=== PATIENT | male | born 1965 | race Caucasian/White ===

== ENCOUNTER → 2018-01-21 16:01 | Outpatient (REF) | payer MEDICARE, OTHER, SELFPAY ==
[2018-01-21 18:20] LABS: Basophils # 0.1 K/mm3 (0-0.2); Basophils % 0.7 % (0.1-2.0); Eosinophils # 0.3 K/mm3 (0.0-0.4); Eosinophils % 3.3 % (0.1-12.0); Hematocrit 49.1 % (42.0-52.0); Hemoglobin 15.6 g/dL (14.1-18.0); Lymphocytes % 23.5 K/mm3 (10-50); Mean Corpuscular HGB Conc 31.7 g/dL (31.8-35.4); Mean Corpuscular Hemoglobin 27.8 pg (27.0-31.2); Mean Corpuscular Volume 87.7 fl (80-94); Mean Platelet Volume 8.5 fl (7.4-10.4); Monocytes # 0.5 K/mm3 (0.1-1.0); Monocytes % 5.8 % (1.7-9.3); Neutrophils # 5.7 K/mm3 (1.8-7.8); Neutrophils % 66.8 % (37.0-80.0); Platelet Count 275 K/mm3 (142-424); Red Cell Distribution Width 13.8 % (11.5-17.5); White Blood Count 8.5 K/mm3 (4.8-10.8)
[2018-01-21 18:37] LABS: Alanine Aminotransferase 28 U/L (12-78); Albumin Level 3.5 gm/dL (3.4-5.0); Alkaline Phosphatase 156 U/L (46-116); Anion Gap 14.3 mEq/L (5-15); Aspartate Amino Transferase 26 U/L (15-37); Bilirubin,Total 0.2 mg/dL (0.2-1.0); Blood Urea Nitrogen 14 mg/dL (7-18); Calcium 9.4 mg/dL (8.5-10.1); Carbon Dioxide 26 mmol/L (21.0-32.0); Chloride 107 mmol/L (98-107); Chol/HDL Ratio 7.1 (1-3.5); Cholesterol 219 mg/dL (140-200); Creatinine,Serum 0.97 mg/dL (0.70-1.30); Estimated Glomerular Filt Rate 82 ml/min (>60); GFR (African American) 99 ML/MIN (>60); Globulin 3.6 gm/dl (1.3-3.2); Glucose 152 mg/dL (74-106); HDL Cholesterol 31 mg/dL (27-67); LDL Cholesterol 110 mg/dL (0-130); Potassium 4.3 mmoL/L (3.5-5.1); Sodium 143 mmol/L (136-145); Thyroid Stimulating Hormone 1.47 uIU/ml (0.358-3.740); Total Protein,Serum 7.1 gm/dL (6.4-8.2); Triglycerides 389 mg/dL (30-200); VLDL Cholesterol 78 mg/dL (0-40)
[2018-01-21 19:00] LABS: Hemoglobin A1C 7.1 % (0.0-7.0)
[2018-01-24 17:39] LABS: Vitamin D 25 Hydroxy 8.6 ng/mL (30.0-100.0)
== END ==
LOC: LAB 16:01
PROVIDERS: Visit Provider Physician Assistant
DX: E11.9 Type 2 diabetes mellitus without complications (principal)
CPT/HCPCS: 80053; 80061; 82043; 82652; 83036; 84436; 84443; 85025

== ENCOUNTER → 2018-03-14 14:17 | Outpatient (CLI) | payer MEDICARE, OTHER, SELFPAY ==
[2018-03-14 14:21] LABS: Microscopic, Urine URINE MICROSCOPIC (MICROSCOPIC)
[2018-03-14 14:45] LABS: Appearance,Urine CLEAR (Clear); Bilirubin,Urine Negative (Negative); Blood, Urine TRACE-I (Negative); Color,Urine YELLOW (Yellow); Glucose,Urine (UA) Negative (Negative); Ketones,Urine Negative (Negative); Leukocyte Esterase,Urine Negative (Negative); Nitrate,Urine Negative (Negative); Protein,Urine 2+ (Negative); Specific Gravity, Urine >= 1.030 (1.005-1.030); Urobilinogen,Urine 0.2 EU/dl (0.2)
[2018-03-14 14:54] LABS: Bacteria,Urine 1+ /lpf; RBC,Urine Occasional #/hpf (0-3)
[2018-03-14 15:03] LABS: Creatinine,Urine Random 251 mg/dL (20-320)
[2018-03-14 15:05] LABS: Basophils # 0.1 K/mm3 (0-0.2); Basophils % 0.7 % (0.1-2.0); Eosinophils # 0.3 K/mm3 (0.0-0.4); Eosinophils % 3.7 % (0.1-12.0); Hematocrit 48.1 % (42.0-52.0); Lymphocytes # 2.3 K/mm3 (0.7-4.5); Lymphocytes % 30.5 K/mm3 (10-50); Mean Corpuscular HGB Conc 31.2 g/dL (31.8-35.4); Mean Corpuscular Hemoglobin 26.8 pg (27.0-31.2); Mean Corpuscular Volume 85.8 fl (80-94); Mean Platelet Volume 7.8 fl (7.4-10.4); Monocytes # 0.3 K/mm3 (0.1-1.0); Monocytes % 4.6 % (1.7-9.3); Neutrophils # 4.4 K/mm3 (1.8-7.8); Neutrophils % 60.4 % (37.0-80.0); Platelet Count 287 K/mm3 (142-424); Red Blood Count 5.61 M/mm3 (4.60-6.20); Red Cell Distribution Width 13.9 % (11.5-17.5); White Blood Count 7.3 K/mm3 (4.8-10.8)
[2018-03-14 15:10] LABS: Total Protein,Urine Random 259.9 mg/dL (0.0-11.9)
[2018-03-14 15:20] LABS: Albumin Level 3.7 gm/dL (3.4-5.0); Anion Gap 14.2 mEq/L (5-15); Blood Urea Nitrogen 12 mg/dL (7-18); Calcium 9.4 mg/dL (8.5-10.1); Carbon Dioxide 28 mmol/L (21.0-32.0); Chloride 105 mmol/L (98-107); Creatinine,Serum 1.23 mg/dL (0.70-1.30); Estimated Glomerular Filt Rate 62 ml/min (>60); GFR (African American) 75 ML/MIN (>60); Glucose 229 mg/dL (74-106); Phosphorous 3.7 mg/dL (2.4-4.9); Potassium 4.2 mmoL/L (3.5-5.1); Sodium 143 mmol/L (136-145)
[2018-03-17 13:26] LABS: Vitamin D 25 Hydroxy 19.1 ng/mL (30.0-100.0)
[2018-03-18 06:09] LABS: Parathyroid Hormone Intact 66 pg/mL (15-65)
[2018-03-18 06:10] LABS: Calcium, Ionized 5.2 mg/dL (4.5-5.6)
== END ==
PROVIDERS: Visit Provider Internal Medicine Nephrology
DX: R80.9 Proteinuria, unspecified (principal)
CPT/HCPCS: 36415; 80069; 81001; 82330; 82570; 82652; 83970; 84155; 85025

== ENCOUNTER → 2018-03-17 14:39 | Outpatient (POV) | payer MEDICARE, OTHER, SELFPAY | PROVIDERS: Family Provider Physician Assistant; PCP Emergency Medicine; Visit Provider Internal Medicine Nephrology | DX: Z00.00 Encounter for general adult medical examination without abnormal findings (principal) ==

== ENCOUNTER → 2018-04-15 15:41 | Outpatient (CLI) | payer MEDICARE, OTHER, SELFPAY ==
[2018-04-15 15:50] LABS: Microscopic, Urine URINE MICROSCOPIC (MICROSCOPIC)
[2018-04-15 16:08] LABS: Basophils # 0.1 K/mm3 (0-0.2); Basophils % 0.8 % (0.1-2.0); Eosinophils # 0.3 K/mm3 (0.0-0.4); Eosinophils % 3.7 % (0.1-12.0); Hemoglobin 13.1 g/dL (14.1-18.0); Lymphocytes # 2.5 K/mm3 (0.7-4.5); Lymphocytes % 31.2 K/mm3 (10-50); Mean Corpuscular HGB Conc 30.5 g/dL (31.8-35.4); Mean Corpuscular Hemoglobin 27.5 pg (27.0-31.2); Mean Corpuscular Volume 90.1 fl (80-94); Mean Platelet Volume 7.6 fl (7.4-10.4); Monocytes # 0.4 K/mm3 (0.1-1.0); Monocytes % 4.9 % (1.7-9.3); Neutrophils # 4.7 K/mm3 (1.8-7.8); Neutrophils % 59.4 % (37.0-80.0); Platelet Count 416 K/mm3 (142-424); Red Blood Count 4.77 M/mm3 (4.60-6.20); Red Cell Distribution Width 15.4 % (11.5-17.5); White Blood Count 7.9 K/mm3 (4.8-10.8)
[2018-04-15 16:38] LABS: Albumin Level 3.6 gm/dL (3.4-5.0); Anion Gap 12.8 mEq/L (5-15); Blood Urea Nitrogen 16 mg/dL (7-18); Calcium 9.1 mg/dL (8.5-10.1); Carbon Dioxide 30 mmol/L (21.0-32.0); Chloride 106 mmol/L (98-107); Estimated Glomerular Filt Rate 53 ml/min (>60); GFR (African American) 65 ML/MIN (>60); Glucose 136 mg/dL (74-106); Phosphorous 3.8 mg/dL (2.4-4.9); Potassium 4.8 mmoL/L (3.5-5.1); Sodium 144 mmol/L (136-145); Uric Acid 6.5 mg/dL (2.6-7.2)
[2018-04-15 17:44] LABS: Appearance,Urine CLEAR (Clear); Blood, Urine 1+ (Negative); Color,Urine YELLOW (Yellow); Glucose,Urine (UA) Negative (Negative); Ketones,Urine Negative (Negative); Leukocyte Esterase,Urine Negative (Negative); Nitrate,Urine Negative (Negative); Protein,Urine 2+ (Negative); Specific Gravity, Urine >= 1.030 (1.005-1.030)
[2018-04-15 17:56] LABS: Bilirubin,Urine Negative (Negative)
[2018-04-15 18:41] LABS: Creatinine,Urine Random 462 mg/dL (20-320); Total Protein,Urine Random 183.3 mg/dL (0.0-11.9)
[2018-04-15 18:52] LABS: Bacteria,Urine 1+ /lpf; Calcium Oxalate Crystals,Urine 3+ /lpf; RBC,Urine Occasional #/hpf (0-3)
[2018-04-18 11:42] LABS: Microalbumin, Urine 881.5 ug/mL (Not Estab.)
[2018-04-24 06:03] LABS: Renin Activity, Plasma 0.529 ng/mL/hr (0.167-5.380)
== END ==
PROVIDERS: Visit Provider Internal Medicine Nephrology
DX: I10 Essential (primary) hypertension (principal)
CPT/HCPCS: 36415; 80069; 81001; 82043; 82088; 82570; 84155; 84244; 84550; 85025

== ENCOUNTER → 2018-04-17 07:48 | Outpatient (CLI) | payer MEDICARE, OTHER, SELFPAY ==
--- NOTE | 2018-04-17 07:54 | AS_ITS ---
Renal Arterial Duplex IMPRESSIONS 1. The right renal artery appears normal. 2. The left renal artery appears normal. 3. High resistance waveforms are demonstrated at the right renal artery. Complete renal arterial duplex. Duplex scan and Doppler flow study including spectral analysis, color and fuller scale imaging. Height: Height: 185.4cm. Height: 73in. Weight: Weight: 148.8kg. Weight: 327.3lb. Body mass index: BMI: 43.3kg/m^2. Body surface area: BSA: 2.83m^2. Location: Vascular laboratory. Patient status: Outpatient. Tables: Arterial flow: + +--------+--------+ Location V sys V ed + +--------+--------+ Right renal - mid 147cm/s 34cm/s + +--------+--------+ Right renal - distal 61.9cm/s -------- + +--------+--------+ Left renal - proximal 95.9cm/s 32.4cm/s + +--------+--------+ Left renal - mid 83.7cm/s 26.9cm/s + +--------+--------+ Left renal - distal 60.5cm/s 20.2cm/s + +--------+--------+ Left renal - Origin 80cm/s 15cm/s + +--------+--------+ Aorta - mid 72cm/s 13cm/s + +--------+--------+ Renal anatomy: + +------+------+ Left Right + +------+------+ Long axis 11.3cm 10.5cm + +------+------+ Short axis 4.7cm 6.5cm + +------+------+ Velocity ratios: + +-----+ V sys + +-----+ Right renal/aortic 2 + +-----+ Left renal/aortic 1.3 + +-----+ (Report amended ) Electronically signed by: Carlos aWtt [id number]
== END ==
PROVIDERS: Family Provider Physician Assistant; PCP Emergency Medicine; Visit Provider Internal Medicine Nephrology
DX: I10 Essential (primary) hypertension (principal)
CPT/HCPCS: 93976

== ENCOUNTER → 2018-07-14 11:34 | Outpatient (CLI) | payer MEDICARE, OTHER, SELFPAY ==
[2018-07-14 11:37] LABS: Microscopic, Urine URINE MICROSCOPIC (MICROSCOPIC)
[2018-07-14 11:50] LABS: Appearance,Urine CLEAR (Clear); Bilirubin,Urine Negative (Negative); Blood, Urine Negative (Negative); Color,Urine YELLOW (Yellow); Glucose,Urine (UA) Negative (Negative); Ketones,Urine Negative (Negative); Leukocyte Esterase,Urine Negative (Negative); Nitrate,Urine Negative (Negative); Protein,Urine 2+ (Negative); Specific Gravity, Urine >= 1.030 (1.005-1.030)
[2018-07-14 11:53] LABS: Creatinine,Urine Random 343 mg/dL (20-320); Total Protein,Urine Random 228.5 mg/dL (0.0-11.9)
[2018-07-14 11:55] LABS: Basophils # 0.1 K/mm3 (0-0.2); Basophils % 0.7 % (0.1-2.0); Eosinophils # 0.3 K/mm3 (0.0-0.4); Eosinophils % 3.3 % (0.1-12.0); Hematocrit 48.1 % (42.0-52.0); Hemoglobin 15.3 g/dL (14.1-18.0); Lymphocytes % 30.3 K/mm3 (10-50); Mean Corpuscular HGB Conc 31.9 g/dL (31.8-35.4); Mean Corpuscular Hemoglobin 27.6 pg (27.0-31.2); Mean Corpuscular Volume 86.6 fl (80-94); Mean Platelet Volume 7.9 fl (7.4-10.4); Monocytes # 0.4 K/mm3 (0.1-1.0); Monocytes % 3.9 % (1.7-9.3); Neutrophils % 61.7 % (37.0-80.0); Platelet Count 259 K/mm3 (142-424); Red Blood Count 5.55 M/mm3 (4.60-6.20); Red Cell Distribution Width 14.2 % (11.5-17.5); White Blood Count 9.7 K/mm3 (4.8-10.8)
[2018-07-14 12:05] LABS: Bacteria,Urine 1+ /lpf; Mucus,Urine 1+ /lpf
[2018-07-14 12:48] LABS: Albumin Level 3.7 gm/dL (3.4-5.0); Anion Gap 11.7 mEq/L (5-15); Blood Urea Nitrogen 17 mg/dL (7-18); Calcium 9.3 mg/dL (8.5-10.1); Carbon Dioxide 32 mmol/L (21.0-32.0); Chloride 104 mmol/L (98-107); Creatinine,Serum 1.07 mg/dL (0.70-1.30); Estimated Glomerular Filt Rate 73 ml/min (>60); GFR (African American) 88 ML/MIN (>60); Glucose 216 mg/dL (74-106); Phosphorous 3.2 mg/dL (2.4-4.9); Potassium 4.7 mmoL/L (3.5-5.1); Sodium 143 mmol/L (136-145)
== END ==
PROVIDERS: PCP Physician Assistant; Visit Provider Internal Medicine Nephrology
DX: I10 Essential (primary) hypertension (principal); E11.22 Type 2 diabetes mellitus with diabetic chronic kidney disease
CPT/HCPCS: 36415; 80069; 81001; 82570; 84155; 85025

== ENCOUNTER → 2018-09-24 14:52 | Outpatient (CLI) | payer MEDICARE, OTHER, SELFPAY ==
[2018-09-24 14:55] LABS: Microscopic, Urine URINE MICROSCOPIC (MICROSCOPIC)
[2018-09-24 15:13] LABS: Appearance,Urine CLEAR (Clear); Blood, Urine TRACE-I (Negative); Color,Urine DK YELLOW (Yellow); Glucose,Urine (UA) Negative (Negative); Ketones,Urine TRACE (Negative); Leukocyte Esterase,Urine Negative (Negative); Nitrate,Urine Negative (Negative); Protein,Urine 3+ (Negative); Specific Gravity, Urine >= 1.030 (1.005-1.030)
[2018-09-24 15:18] LABS: Basophils # 0.1 K/mm3 (0-0.2); Basophils % 0.8 % (0.1-2.0); Eosinophils # 0.3 K/mm3 (0.0-0.4); Hematocrit 50.9 % (42.0-52.0); Lymphocytes # 2.6 K/mm3 (0.7-4.5); Mean Corpuscular HGB Conc 31.5 g/dL (31.8-35.4); Mean Corpuscular Hemoglobin 27.6 pg (27.0-31.2); Mean Corpuscular Volume 87.6 fl (80-94); Mean Platelet Volume 7.6 fl (7.4-10.4); Monocytes # 0.4 K/mm3 (0.1-1.0); Monocytes % 3.9 % (1.7-9.3); Neutrophils # 5.6 K/mm3 (1.8-7.8); Neutrophils % 63.4 % (37.0-80.0); Platelet Count 236 K/mm3 (142-424); Red Cell Distribution Width 14.5 % (11.5-17.5); White Blood Count 8.9 K/mm3 (4.8-10.8)
[2018-09-24 15:21] LABS: Creatinine,Urine Random 560 mg/dL (20-320)
[2018-09-24 15:24] LABS: Total Protein,Urine Random 739.9 mg/dL (0.0-11.9)
[2018-09-24 15:50] LABS: Bacteria,Urine 1+ /lpf; RBC,Urine Occasional #/hpf (0-3)
[2018-09-24 15:51] LABS: Bilirubin,Urine Negative (Negative)
[2018-09-24 17:08] LABS: Albumin Level 3.6 gm/dL (3.4-5.0); Anion Gap 10.7 mEq/L (5-15); Blood Urea Nitrogen 13 mg/dL (7-18); Calcium 9.3 mg/dL (8.5-10.1); Carbon Dioxide 31 mmol/L (21.0-32.0); Chloride 104 mmol/L (98-107); Creatinine,Serum 1.17 mg/dL (0.70-1.30); Estimated Glomerular Filt Rate 65 ml/min (>60); GFR (African American) 79 ML/MIN (>60); Glucose 153 mg/dL (74-106); Phosphorous 2.9 mg/dL (2.4-4.9); Potassium 4.7 mmoL/L (3.5-5.1); Sodium 141 mmol/L (136-145)
== END ==
PROVIDERS: Visit Provider Internal Medicine Nephrology
DX: R80.9 Proteinuria, unspecified (principal)
CPT/HCPCS: 36415; 80069; 81001; 82570; 84155; 85025

== ENCOUNTER → 2018-10-30 07:51 | Outpatient (CLI) | payer MEDICARE, OTHER, SELFPAY ==
--- NOTE | 2018-10-30 07:53 | US_ITS ---
US abd. aorta screening HISTORY: Evaluate for abdominal aorta ITS.REASON: Pulsing heartbeat abdomen ORDERING PHYSICIAN: ARCADIO Wu PATIENT AGE: 53 years Comparison: None FINDINGS: No evidence of abdominal aortic aneurysm. Study is somewhat limited secondary to patient's body habitus. Maximum AP dimension of the aorta is approximately 1.6 cm. IMPRESSION: Negative for abdominal aortic aneurysm
== END ==
PROVIDERS: PCP Physician Assistant; Visit Provider Physician Assistant
DX: I10 Essential (primary) hypertension (principal)
CPT/HCPCS: 76705

== ENCOUNTER → 2019-06-24 17:42 | Outpatient (CLI) | payer MEDICARE, OTHER, SELFPAY ==
[2019-06-24 18:26] LABS: Basophils # 0.1 K/mm3 (0-0.2); Basophils % 0.7 % (0.1-2.0); Eosinophils # 0.2 K/mm3 (0.0-0.4); Eosinophils % 2.4 % (0.1-12.0); Hematocrit 47.4 % (42.0-52.0); Hemoglobin 15.5 g/dL (14.1-18.0); Lymphocytes # 2.5 K/mm3 (0.7-4.5); Lymphocytes % 24.2 % (10-50); Mean Corpuscular HGB Conc 32.7 g/dL (31.8-35.4); Mean Corpuscular Hemoglobin 28.7 pg (27.0-31.2); Mean Corpuscular Volume 87.7 fl (80-94); Mean Platelet Volume 7.5 fl (7.4-10.4); Monocytes # 0.5 K/mm3 (0.1-1.0); Monocytes % 5.1 % (1.7-9.3); Neutrophils # 6.9 K/mm3 (1.8-7.8); Neutrophils % 67.7 % (37.0-80.0); Platelet Count 324 K/mm3 (142-424); Red Blood Count 5.41 M/mm3 (4.60-6.20); Red Cell Distribution Width 13.5 % (11.5-17.5); White Blood Count 10.1 K/mm3 (4.8-10.8)
[2019-06-24 18:53] LABS: Hemoglobin A1C 7.7 % (0.0-7.0)
[2019-06-24 19:12] LABS: Alanine Aminotransferase 28 U/L (12-78); Albumin Level 3.8 gm/dL (3.4-5.0); Alkaline Phosphatase 155 U/L (46-116); Anion Gap 14.5 mEq/L (5-15); Aspartate Amino Transferase 27 U/L (15-37); Bilirubin,Total 0.6 mg/dL (0.2-1.0); Blood Urea Nitrogen 13 mg/dL (7-18); Calcium 9.5 mg/dL (8.5-10.1); Carbon Dioxide 29 mmol/L (21.0-32.0); Chloride 102 mmol/L (98-107); Chol/HDL Ratio 6.5 (1-3.5); Cholesterol 213 mg/dL (140-200); Creatinine,Serum 1.42 mg/dL (0.70-1.30); Estimated Glomerular Filt Rate 52 ml/min (>60); GFR (African American) 63 ML/MIN (>60); Globulin 3.8 gm/dl (1.3-3.2); Glucose 144 mg/dL (74-106); HDL Cholesterol 33 mg/dL (27-67); LDL Cholesterol 126 mg/dL (0-130); Potassium 4.5 mmoL/L (3.5-5.1); Sodium 141 mmol/L (136-145); T4 (Thyroxine) 12.1 ug/dl (4.7-13.3); Thyroid Stimulating Hormone 1.27 uIU/ml (0.358-3.740); Total Protein,Serum 7.6 gm/dL (6.4-8.2); Triglycerides 272 mg/dL (30-200); VLDL Cholesterol 54 mg/dL (0-40)
== END ==
PROVIDERS: Visit Provider Physician Assistant
DX: E11.9 Type 2 diabetes mellitus without complications (principal); Z79.4 Long term (current) use of insulin; Z79.84 Long term (current) use of oral hypoglycemic drugs; E55.9 Vitamin D deficiency, unspecified
CPT/HCPCS: 80053; 80061; 82652; 83036; 84436; 84443; 85025

== ENCOUNTER → 2019-12-24 16:23 | Outpatient (CLI) | payer MEDICARE, OTHER, SELFPAY | PROVIDERS: Visit Provider Physician Assistant | DX: L02.211 Cutaneous abscess of abdominal wall (principal) | CPT/HCPCS: 87070; 87077; 87186; 87205 ==

== ENCOUNTER → 2020-08-01 14:33 | Outpatient (CLI) | payer MEDICARE, OTHER, SELFPAY ==
[2020-08-01 14:41] LABS: Chloride 106 mmol/L (98-107); Sodium 142 mmol/L (136-145)
[2020-08-01 14:42] LABS: Potassium 4.9 mmoL/L (3.5-5.1)
[2020-08-01 14:43] LABS: Basophils # 0.1 K/mm3 (0-0.2); Basophils % 1.1 % (0.1-2.0); Eosinophils # 0.2 K/mm3 (0.0-0.4); Eosinophils % 2.6 % (0.1-12.0); Hemoglobin 13.1 g/dL (14.1-18.0); Lymphocytes # 2.5 K/mm3 (0.7-4.5); Lymphocytes % 37.1 % (10-50); Mean Corpuscular HGB Conc 31.9 g/dL (31.8-35.4); Mean Corpuscular Hemoglobin 29.4 pg (27.0-31.2); Mean Corpuscular Volume 92.4 fl (80-94); Mean Platelet Volume 8.2 fl (7.4-10.4); Monocytes # 0.4 K/mm3 (0.1-1.0); Monocytes % 5.3 % (1.7-9.3); Neutrophils # 3.7 K/mm3 (1.8-7.8); Neutrophils % 53.8 % (37.0-80.0); Platelet Count 328 K/mm3 (142-424); Red Blood Count 4.44 M/mm3 (4.60-6.20); Red Cell Distribution Width 16.2 % (11.5-17.5); White Blood Count 6.8 K/mm3 (4.8-10.8)
[2020-08-01 14:44] LABS: Alanine Aminotransferase 16 U/L (12-78); Albumin Level 3.9 g/dl (3.5-5.0); Albumin/Globulin Ratio 1.3 (1.1-1.8); Alkaline Phosphatase 143 U/L (38-126); Anion Gap 13.9 mEq/L (5-15); Aspartate Amino Transferase 23 U/L (17-59); Bilirubin,Total 0.5 mg/dl (0.2-1.3); Blood Urea Nitrogen 17 mg/dl (9-20); Carbon Dioxide 27 mmol/L (22.0-30.0); Cholesterol 202 mg/dl (140-200); Estimated Glomerular Filt Rate 70 ml/min (>60); GFR (African American) 85 ML/MIN (>60); Globulin 2.9 g/dL (1.3-3.2); Total Protein,Serum 6.8 g/dl (6.3-8.2); Triglycerides 233 mg/dl (30-150); VLDL Cholesterol 47 mg/dL (0-40)
[2020-08-01 14:45] LABS: Calcium 9.5 mg/dl (8.4-10.2); Chol/HDL Ratio 5.6 (1-3.5); Glucose 175 mg/dl (74-100); HDL Cholesterol 36 mg/dl (40-60)
[2020-08-01 14:56] LABS: Direct LDL Cholesterol 128.78 mg/dL (100-129)
[2020-08-01 15:02] LABS: T4 (Thyroxine) 10.8 ug/dl (5.53-11.0)
[2020-08-01 15:15] LABS: Thyroid Stimulating Hormone 1.29 uIU/mL (0.465-4.68)
[2020-08-03 14:46] LABS: PSA, Free 0.24 ng/mL; Prostate Specific Ag 0.5 ng/mL (0.0-4.0)
== END ==
PROVIDERS: Visit Provider Physician Assistant
DX: E11.9 Type 2 diabetes mellitus without complications (principal); F32.9 Major depressive disorder, single episode, unspecified; I25.10 Atherosclerotic heart disease of native coronary artery without angina pectoris; R42 Dizziness and giddiness; Z79.4 Long term (current) use of insulin; R79.89 Other specified abnormal findings of blood chemistry
CPT/HCPCS: 80053; 80061; 83036; 84153; 84154; 84436; 84443; 85025

== ENCOUNTER → 2020-08-10 07:31 | Outpatient (CLI) | payer MEDICARE, OTHER, SELFPAY ==
--- NOTE | 2020-08-10 07:31 | CT_ITS ---
PROCEDURE: CT HEAD/BRAIN WO CON CLINICAL INDICATION: vertigo COMPARISON: No exams were available for comparison TECHNIQUE: Axial images obtained. All CT scans at the facility use one or more dose reduction, viz: automated exposure control, ma/kV adjustment per patient size (including targeted exams where dose is matched to indication, i.e. head), or iterative reconstruction technique. FINDINGS: No midline shift, mass effect, intracranial hemorrhage, hydrocephalus, or extra-axial fluid collection is evident. The sylvian fissures and cortical sulci appear normal. There is no evidence of ischemic infarct. The calvarium has an unremarkable appearance. No mastoid effusion. The internal auditory canals appear normal bilaterally. No sinus air-fluid level. IMPRESSION: No acute intracranial finding Dictated by: Dr. Dominik Macias MD 08/10/2020 08:00 Dr. Dominik Macias MD in [facility] 08/10/2020 08:00
== END ==
PROVIDERS: PCP Physician Assistant; Visit Provider Physician Assistant
DX: R42 Dizziness and giddiness (principal)
CPT/HCPCS: 70450

== ENCOUNTER → 2021-01-30 09:52 | Outpatient (CLI) | payer MEDICARE, OTHER, SELFPAY ==
--- NOTE | 2021-01-30 10:02 | XR_ITS ---
PROCEDURE: XR KNEE RT 4V CLINICAL INDICATION: RT knee pain COMPARISON: No exams were available for comparison FINDINGS: No fracture or dislocation. No lytic or blastic change. There is normal mineralization. There are mild tricompartmental osteoarthritic changes. At the medial aspect of the distal femur there is a extra ossicle at 16 by 7 mm and may represent sequela from prior avulsion injury. Small osteophyte is present just distal to this region. Other findings:None. IMPRESSION: 1. No acute fracture. 2. Mild osteoarthritic change. 3. Well-circumscribed ossicle at the distal aspect of the femur medially and could represent sequela from old ligamentous injury Dictated by: Carlos Watt MD 01/30/2021 17:43 Carlos Watt MD in [facility] 01/30/2021 17:43
== END ==
PROVIDERS: PCP Physician Assistant; Visit Provider Orthopaedic Surgery
DX: M25.561 Pain in right knee (principal)
CPT/HCPCS: 73564

== ENCOUNTER → 2021-04-06 13:40 | Outpatient (CLI) | payer MEDICARE, OTHER, SELFPAY ==
[2021-04-06 13:54] LABS: Alanine Aminotransferase 24 U/L (12-78); Albumin Level 4.1 g/dl (3.5-5.0); Albumin/Globulin Ratio 1.5 (1.1-1.8); Alkaline Phosphatase 157 U/L (38-126); Anion Gap 13.1 mEq/L (5-15); Aspartate Amino Transferase 32 U/L (17-59); Bilirubin,Total 0.6 mg/dl (0.2-1.3); Blood Urea Nitrogen 24 mg/dl (9-20); Calcium 9.2 mg/dl (8.4-10.2); Carbon Dioxide 30 mmol/L (22.0-30.0); Chloride 98 mmol/L (98-107); Chol/HDL Ratio 8.1 (1-3.5); Cholesterol 220 mg/dl (140-200); Estimated Glomerular Filt Rate 53 ml/min (>60); GFR (African American) 64 ML/MIN (>60); Globulin 2.7 g/dL (1.3-3.2); HDL Cholesterol 27 mg/dl (40-60); Potassium 4.1 mmoL/L (3.5-5.1); Sodium 137 mmol/L (136-145); Total Protein,Serum 6.8 g/dl (6.3-8.2)
[2021-04-06 14:01] LABS: Creatinine,Urine Random 51 mg/dL (Not Estab.)
[2021-04-06 14:05] LABS: Microalbumin/Creatinine Ratio 330.7
[2021-04-06 14:06] LABS: Direct LDL Cholesterol 107.76 mg/dL (100-129)
[2021-04-06 14:08] LABS: Glucose 595 mg/dl (74-100); Triglycerides 612 mg/dl (30-150)
[2021-04-06 14:09] LABS: Hemoglobin A1C 11.5 % (4.0-6.0)
[2021-04-06 14:14] LABS: T4 (Thyroxine) 9.2 ug/dl (5.53-11.0)
[2021-04-06 14:28] LABS: Prostate Specific Ag Screen 0.6 ng/ml (0.0-4.0); Thyroid Stimulating Hormone 1.25 uIU/mL (0.465-4.68)
[2021-04-06 14:33] LABS: Basophils # 0.1 K/mm3 (0-0.2); Basophils % 0.8 % (0.1-2.0); Eosinophils # 0.3 K/mm3 (0.0-0.4); Eosinophils % 3.4 % (0.1-12.0); Hematocrit 44.2 % (42.0-52.0); Hemoglobin 14.8 g/dL (14.1-18.0); Lymphocytes % 26.5 % (10-50); Mean Corpuscular HGB Conc 33.5 g/dL (31.8-35.4); Mean Corpuscular Hemoglobin 29.4 pg (27.0-31.2); Mean Corpuscular Volume 87.9 fl (80-94); Mean Platelet Volume 8.3 fl (7.4-10.4); Monocytes # 0.4 K/mm3 (0.1-1.0); Neutrophils % 64.3 % (37.0-80.0); Platelet Count 269 K/mm3 (142-424); Red Blood Count 5.02 M/mm3 (4.60-6.20); Red Cell Distribution Width 14.7 % (11.5-17.5); White Blood Count 7.7 K/mm3 (4.8-10.8)
== END ==
PROVIDERS: Visit Provider Physician Assistant
DX: E11.9 Type 2 diabetes mellitus without complications (principal); M47.27 Other spondylosis with radiculopathy, lumbosacral region; Z09 Encounter for follow-up examination after completed treatment for conditions other than malignant neoplasm; M54.9 Dorsalgia, unspecified; I25.10 Atherosclerotic heart disease of native coronary artery without angina pectoris; Z12.11 Encounter for screening for malignant neoplasm of colon; Z12.12 Encounter for screening for malignant neoplasm of rectum; Z12.5 Encounter for screening for malignant neoplasm of prostate
CPT/HCPCS: 80053; 80061; 82043; 82570; 83036; 84436; 84443; 85025; G0103

== ENCOUNTER → 2021-04-15 07:43 | Outpatient (CLI) | payer MEDICARE, OTHER, SELFPAY ==
--- NOTE | 2021-04-15 07:44 | MR_ITS ---
PROCEDURE INFORMATION: Exam: MR Lumbar Spine Without Contrast Exam date and time: 04/15/2021 7:44 AM Age: 55 years old Clinical indication: Low back pain and lumbago with sciatica. TECHNIQUE: Imaging protocol: Multiplanar magnetic resonance images of the lumbar spine without intravenous contrast. COMPARISON: ABDPELW CT ABD PELVIS W/ CONTRAST 10/16/2016 9:39 AM FINDINGS: Vertebrae: There are multiple high signal lesions within several vertebra that have the appearance of hemangioma. Spinal cord: Normal signal. No cord compression. L1-L2: No significant disc disease. No significant spinal canal stenosis. No neural foraminal stenosis. L2-L3: There is mild retrolisthesis at this level. There is degenerative disc disease including disc space narrowing and dessication. There is mild ventral ridging which flattens the ventral thecal sac. There is mild/moderate bilateral neuroforaminal narrowing, right worse than left. There is facet arthropathy and ligamentum flavum hypertrophy. There is mild spinal canal stenosis. L3-L4: There is degenerative disc disease including disc space narrowing and dessication. There is a moderate disc/osteophyte complex that flattens the ventral thecal sac. There is moderate bilateral neural foraminal narrowing, left worse than right. There is facet arthropathy and ligamentum flavum hypertrophy. There is mild/moderate spinal canal stenosis. L4-L5: There is disc desiccation. There is mild ventral ridging which flattens the ventral thecal sac. There is mild/moderate bilateral neuroforaminal narrowing. There is facet arthropathy and ligamentum flavum hypertrophy. There is mild/moderate spinal canal stenosis. L5-S1: There is disc space narrowing and desiccation. There are moderate degenerative end plate changes at this level. There is a superimposed right foraminal disc herniation. There is moderate bilateral neural foraminal narrowing, right worse than left. There is facet arthropathy and ligamentum flavum hypertrophy. Soft tissues: Unremarkable. Spleen: There is splenomegaly. Other findings: There is congenital spinal canal stenosis which is exacerbated by multilevel degenerative changes. IMPRESSION: 1. There is congenital spinal canal stenosis which is exacerbated by multilevel degenerative changes. Please see details above. 2. Multilevel degenerative changes causing variable degrees of spinal canal and neuroforaminal narrowing as described above.
== END ==
PROVIDERS: PCP Physician Assistant; Visit Provider Physician Assistant
DX: M47.27 Other spondylosis with radiculopathy, lumbosacral region (principal); M54.5 Low back pain
CPT/HCPCS: 72148; 76376

== ENCOUNTER → 2021-04-28 10:33 | Outpatient (CLI) | payer MEDICARE, OTHER, SELFPAY ==
--- NOTE | 2021-04-28 10:36 | XR_ITS ---
PROCEDURE: XR HIP RT 2-3V W/PELVIS CLINICAL INDICATION: RT knee pain Right hip pain COMPARISON: CT ABDPELW CT ABD PELVIS W/ CONTRAST from 10/16/2016 FINDINGS: Minimal osteoarthritic changes are present involving the right hip. No fracture or dislocation. No lytic or blastic change. AP view of the pelvis also shows mild osteoarthritic change of the left hip. IMPRESSION: Mild osteoarthritis of the hips Dictated by: Carlos Watt MD 04/28/2021 10:54 Carlos Watt MD in [facility] 04/28/2021 10:54
== END ==
PROVIDERS: PCP Physician Assistant; Visit Provider Orthopaedic Surgery
DX: M25.561 Pain in right knee (principal)
CPT/HCPCS: 73502

== ENCOUNTER → 2021-12-13 07:45 | Outpatient (CLI) | payer MEDICARE, OTHER, SELFPAY ==
--- NOTE | 2021-12-13 07:47 | CA_ITS ---
APPROVED REPORT EXAM: Comprehensive 2D, Doppler, and color-flow Echocardiogram Electronic Engraver: Mary Kate Byers RVT Ht: 6 ft 1 in Wt: 321lbs BSA: 2.63 BP: 155/90 mmHg Indications: COPD,ZAYAS,HTN,DM,OBESITY TDS 2D Dimensions LVOT 2.13 cm (M/F) 1.5-2.5 M-Mode Dimensions RVDd 3.31 cm (0.9-2.6) LA Diam 3.95 cm (1.9-4.0) LVDd 3.22 cm (3.5-5.7) Ao Diam 3.16 cm (2.0-3.7) LVDs 1.74 cm (3.5-5.7) IVSd 1.70 cm (0.6-1.1) PWd 1.21 cm (0.6-1.1) EF (Teich) 78.60% FS 46.00% EDV (Teich) 41.60 mL TAPSE 2.31 (<1.7) ESV (Teich) 8.90 mL LV Diastology E Decel Time 283.00 (160-240 msec) E/A Ratio 0.5 MED E' 6.70 (< 7 cm/sec) E'/MED E' Ratio 6.31 (>14) LAT E' 9.40 (<10 cm/sec) E/LAT E' Ratio 4.50 (>14) Mitral Valve MV E Max Eric. 42.00 (40-130 cm/s) MV A Velocity 80.00 (40-130 cm/s) E/A Ratio 0.53 MV Decel. Time 283.00 (160-240 ms) MV PHT 83.00 ms Pulmonary Valve PV Peak Velocity 78.00 (50-150 cm/s) Tricuspid Valve TR P. Velocity 195.00 cm/s RAP Estimate 10.00 mmHg RVSP 25.20 mmHg Left Ventricle Left atrium is mildly enlarged, left ventricle is normal size, mild concentric left ventricular hypertrophy, visually estimated ejection fraction 55% with no regional wall motion abnormality, grade 1 diastolic dysfunction seen without tissue Doppler evidence of raise left atrial pressure. Right Ventricle Right atrium and right ventricle are mildly enlarged with normal contractility. Aortic Valve Aortic valve is minimally thickened and fibrosed there is no aortic stenosis or aortic insufficiency. Mitral Valve Mitral valve grossly normal, there is trace mitral regurgitation. Tricuspid Valve Tricuspid grossly normal, there is trace tricuspid regurgitation, tricuspid regurgitation jet velocity is inadequate for calculation of the right ventricular systolic pressure. Pulmonic Valve Pulmonic valve is poorly visualized. Great Vessels Aortic root is normal size. Inferior vena cava normal size with normal inspiratory collapse. Pericardium No significant pericardial effusion noted. Conclusion 1. Biatrial enlargement, normal left ventricular size, mild concentric left ventricular hypertrophy, visually estimated ejection fraction 55% with no regional wall motion abnormality, grade 1 diastolic dysfunction seen without tissue Doppler evidence of raise left atrial pressure. 2. Mildly enlarged right ventricle with normal contractility. 3. Trace mitral and tricuspid regurgitation. 4. No significant pericardial effusion. 5. Inferior vena cava is normal size with normal inspiratory collapse. Electronically signed by : Layo Robert MD 12/13/2021 09:29:50
--- NOTE | 2021-12-13 08:34 | CT_ITS ---
FINAL REPORT CLINICAL HISTORY: lung cancer screening FINDINGS: Low-Dose Chest CT CTDI vol (mGy): 2.90 DLP (mGy-cm): 121.94 Axial images were obtained from the lung apex to the mid abdomen by computed tomography. Low-dose protocol was utilized. FINDINGS: CHEST: There is streak artifact secondary to the patient body habitus. There is no axillary adenopathy. There is no hilar or mediastinal adenopathy. The heart is proper size. There is no pericardial or pleural effusion. Limited images of the upper abdomen demonstrate high attenuation focus in the gallbladder fossa, uncertain if this represents surgical clips or gallstones. Lung window images demonstrate mild scarring/fibrosis in the lung bases, right greater than left. There is a 3 mm nodule near the minor fissure well seen on image 49. There is a 7 mm nodule in the anterior right lung base well seen on image 74. IMPRESSION: Pulmonary nodules as described. Lung RADS category 3. Recommend 6 month follow-up low-dose chest CT. Reviewed, Interpreted and Dictated by Quentin Curtis III, MD Transcribed by Alisha Salinas Authenticated by Quentin Curtis III, MD on 12/13/2021 11:08:[address] [facility]
--- NOTE | 2021-12-13 10:30 | PC.NURSE ---
PFT and 6 Minute walk completed without incident. Albuterol 0.083% given via HHN per written protocol, Pt tolerated tx well.
== END ==
PROVIDERS: PCP Physician Assistant; Visit Provider Physician Assistant
DX: I25.10 Atherosclerotic heart disease of native coronary artery without angina pectoris; R06.00 Dyspnea, unspecified; Z87.891 Personal history of nicotine dependence
CPT/HCPCS: 71271; 93306; 94060; 94618; 94726; 94729

== ENCOUNTER → 2022-03-26 16:33 | Outpatient (CLI) | payer MEDICARE, OTHER, SELFPAY ==
[2022-03-26 13:38] LABS: Alanine Aminotransferase 21 U/L (12-78); Albumin/Globulin Ratio 1.3 (1.1-1.8); Alkaline Phosphatase 147 U/L (38-126); Anion Gap 12.9 mEq/L (5-15); Aspartate Amino Transferase 31 U/L (17-59); Bilirubin,Total 0.5 mg/dl (0.2-1.3); Blood Urea Nitrogen 23 mg/dl (9-20); Calcium 9.5 mg/dl (8.4-10.2); Carbon Dioxide 26 mmol/L (22.0-30.0); Chloride 103 mmol/L (98-107); Chol/HDL Ratio 9.5 (1-3.5); Cholesterol 227 mg/dl (140-200); Estimated Glomerular Filt Rate 63 ml/min (>60); GFR (African American) 76 ML/MIN (>60); Glucose 282 mg/dl (74-100); HDL Cholesterol 24 mg/dl (40-60); Potassium 4.9 mmoL/L (3.5-5.1); Sodium 137 mmol/L (136-145)
[2022-03-26 13:39] LABS: Triglycerides 497 mg/dl (30-150)
[2022-03-26 13:48] LABS: Direct LDL Cholesterol 113.63 mg/dL (100-129)
[2022-03-26 13:51] LABS: Basophils # 0.1 K/mm3 (0-0.2); Eosinophils # 0.2 K/mm3 (0.0-0.4); Eosinophils % 2.4 % (0.1-12.0); Hematocrit 45.9 % (42.0-52.0); Hemoglobin 15.9 g/dL (14.1-18.0); Lymphocytes # 2.2 K/mm3 (0.7-4.5); Lymphocytes % 27.7 % (10-50); Mean Corpuscular HGB Conc 34.6 g/dL (31.8-35.4); Mean Corpuscular Hemoglobin 30.2 pg (27.0-31.2); Mean Corpuscular Volume 87.3 fl (80-94); Mean Platelet Volume 8.3 fl (7.4-10.4); Monocytes # 0.5 K/mm3 (0.1-1.0); Monocytes % 6.2 % (1.7-9.3); Neutrophils # 5.1 K/mm3 (1.8-7.8); Neutrophils % 62.6 % (37.0-80.0); Platelet Count 285 K/mm3 (142-424); Red Blood Count 5.25 M/mm3 (4.60-6.20); Red Cell Distribution Width 14.2 % (11.5-17.5); White Blood Count 8.1 K/mm3 (4.8-10.8)
[2022-03-26 13:57] LABS: 25-OH Vitamin D, Total < 12.8 ng/mL (30-100)
[2022-03-26 14:09] LABS: Thyroid Stimulating Hormone 1.39 uIU/mL (0.465-4.68)
[2022-03-26 14:30] LABS: Hemoglobin A1C 9.4 % (4.0-6.0)
== END ==
PROVIDERS: Visit Provider Physician Assistant
DX: E11.9 Type 2 diabetes mellitus without complications (principal); I25.10 Atherosclerotic heart disease of native coronary artery without angina pectoris; E55.9 Vitamin D deficiency, unspecified; Z79.84 Long term (current) use of oral hypoglycemic drugs
CPT/HCPCS: 80053; 80061; 82306; 83036; 84443; 85025

== ENCOUNTER → 2022-06-25 07:53 | Outpatient (CLI) | payer MEDICARE, OTHER, SELFPAY ==
--- NOTE | 2022-06-25 07:53 | CT_ITS ---
FINAL REPORT TECHNIQUE: Axial images were obtained from the lung apex to the mid abdomen by computed tomography. Coronal reformatted images were obtained. This study was performed with techniques to keep radiation doses as low as reasonably achievable, (ALARA). Individualized dose reduction techniques using automated exposure control or adjustment of mA and/or kV according to the patient''s size were employed. CLINICAL HISTORY: 6month f/u from LDCT COMPARISON: 12/13/2021 FINDINGS: There is no hilar or mediastinal adenopathy. Heart size is normal. There is no pericardial or pleural effusion. Limited images of the upper abdomen demonstrate postoperative changes from cholecystectomy. There is a 7 mm nodule in the right anterior lung base which appears to be partially calcified and is consistent with a granuloma. There is a 3 mm nodule near the minor fissure which is stable. There is a small calcified granuloma in the superior segment of the left lower lobe. There is mild scarring or atelectasis. No new mass or nodule is identified. IMPRESSION: 7 mm nodule in the right anterior lung base appears to be partially calcified and consistent with a granuloma. Stable 3 mm nodule near the minor fissure. Recommend resume annual screenings in 12 months. Reviewed, Interpreted and Dictated by Quentin Curtis III, MD Transcribed by Alisha Salinas Authenticated and [facility]
== END ==
PROVIDERS: PCP Physician Assistant; Visit Provider Physician Assistant
DX: R91.1 Solitary pulmonary nodule (principal)
CPT/HCPCS: 71250